=== PATIENT | male | born 1950 | race Caucasian/White ===

== ENCOUNTER 2021-11-18 20:37 | Inpatient (IN) | payer OTHER ==
[2021-11-18 21:22] LABS: #Eosinphils 0.1 10x3/uL (0.0-0.5); #Monocytes 1.1 10x3/uL (0.0-1.1); #Neutrophils 5.7 10x3/uL (1.5-8.4); %Basophils 0.4 % (0.0-2.0); %Lymphocytes 11.1 % (18.0-47.0); %Monocytes 13.8 % (0.0-10.0); %Neutrophils 73.2 % (40.0-75.0); Hemoglobin 10.9 g/dL (13.5-17.5); Mean Corpuscular HGB CONC 31.8 g/dL (32.0-36.0); Mean Corpuscular Hemoglobin 28.3 pg (27.0-33.0); Mean Corpuscular Volume 89.1 fl (81.2-95.1); Mean Platelet Volume 11.4 fl (7.4-10.4); Platelet Count 170 10x3/uL (150-450); RBC Distribution Width 13.8 % (11.5-14.5); Red Blood Cell (RBC) Count 3.85 10x6/uL (4.32-5.72); White Blood Cell (WBC) Count 7.8 10x3/uL (3.5-10.5)
[2021-11-18 21:45] LABS: SARS-CoV-2 NAA Rapid Test DETECTED (NotDetected)
[2021-11-18 21:57] LABS: ALT (SGPT) 21 U/L (8-55); AST (SGOT) 20 U/L (5-34); Albumin 3.9 g/dL (3.4-4.8); Alkaline Phosphatase 90 U/L (40-110); Anion Gap 13 mmol/L (10-20); BUN (Urea Nitrogen) 39 mg/dL (8.4-25.7); Bilirubin, Total 0.4 mg/dL (0.2-1.2); Calc. Creatinine Clearance 0 mL/min (70-130); Calcium 8.5 mg/dL (7.8-10.44); Carbon Dioxide 23 mmol/L (23-31); Chloride 106 mmol/L (98-107); Globulin 2.3 g/dL (2.4-3.5); Glucose 85 mg/dL (83-110); Potassium 4.4 mmol/L (3.5-5.1); Protein, Total 6.2 g/dL (5.8-8.1); Sodium 138 mmol/L (136-145)
[2021-11-18] MEDS ORDERED: Furosemide 40 MG/4 ML VIAL ONE (22:10)
[2021-11-18 22:22] LABS: CKMB 4.2 ng/mL (0-6.6)
[2021-11-18] MEDS ORDERED: Heparin 5,000 UNITS/ML VIAL ONE (22:43)
[2021-11-18] MEDS ORDERED: Heparin 25,000 units/D5W 500 ML ONE (22:43)
[2021-11-18] MEDS ORDERED: Nitroglycerin 0.4 MG TAB (25 Tab Bottle) SL PRN (23:22)
[2021-11-18] MEDS ORDERED: Zinc Sulfate 220 MG CAP PO SCH (23:30)
[2021-11-18] MEDS ORDERED: Cholecalciferol 1,000 UNITS (25 MCG) TAB PO SCH (23:30)
[2021-11-18] MEDS ORDERED: Ascorbic Acid 500 mg Chewable Tablet PO SCH (23:30)
[2021-11-18] MEDS ORDERED: Dextrose 5% in Water 1,000 ML IV PRN (23:34)
[2021-11-18] MEDS ORDERED: Dextrose 50% Abboject 50 ML SYRINGE SLOW IVP PRN (23:34)
[2021-11-18] MEDS ORDERED: Heparin 25,000 units/D5W 500 ML IVPB SCH (23:45)
[2021-11-18] MEDS ORDERED: Heparin 10,000 UNITS/ 10 ML VIAL SLOW IVP SCH (23:45)
[2021-11-19 00:11] LABS: Magnesium 2.3 mg/dL (1.6-2.6)
[2021-11-19 00:14] LABS: Hemoglobin 10.2 g/dL (13.5-17.5); Platelet Count 153 10x3/uL (150-450)
[2021-11-19] MEDS ORDERED: Dexamethasone 10 MG/ML VIAL SLOW IVP SCH (00:15)
[2021-11-19] MEDS ORDERED: Aspirin 325 MG TAB PO SCH (00:15)
[2021-11-19 00:38] LABS: PTT 106.4 sec (22.0-33.0)
[2021-11-19] MEDS ORDERED: Ascorbic Acid 500 mg Chewable Tablet ONE (01:27)
[2021-11-19] MEDS ORDERED: Zinc Sulfate 220 MG CAP ONE (01:27)
[2021-11-19] MEDS ORDERED: Dexamethasone 10 MG/ML VIAL ONE (01:28)
[2021-11-19 03:27] LABS: #Eosinphils 0.1 10x3/uL (0.0-0.5); #Monocytes 0.6 10x3/uL (0.0-1.1); #Neutrophils 4.8 10x3/uL (1.5-8.4); %Basophils 0.5 % (0.0-2.0); %Eosinophils 1.6 % (0.0-6.0); %Monocytes 8.7 % (0.0-10.0); %Neutrophils 75.7 % (40.0-75.0); Hemoglobin 10.8 g/dL (13.5-17.5); Mean Corpuscular HGB CONC 31.8 g/dL (32.0-36.0); Mean Corpuscular Hemoglobin 28.3 pg (27.0-33.0); Mean Corpuscular Volume 89.2 fl (81.2-95.1); Mean Platelet Volume 11.6 fl (7.4-10.4); Platelet Count 156 10x3/uL (150-450); RBC Distribution Width 13.9 % (11.5-14.5); Red Blood Cell (RBC) Count 3.81 10x6/uL (4.32-5.72); White Blood Cell (WBC) Count 6.3 10x3/uL (3.5-10.5)
[2021-11-19 04:02] LABS: Anion Gap 15 mmol/L (10-20); BUN (Urea Nitrogen) 40 mg/dL (8.4-25.7); Calc. Creatinine Clearance 0 mL/min (70-130); Calcium 8.4 mg/dL (7.8-10.44); Carbon Dioxide 22 mmol/L (23-31); Cardiac Risk 3.5 (Less than 4.5); Chloride 106 mmol/L (98-107); Cholesterol 126 mg/dl (< 200 Desired); Glucose 114 mg/dL (83-110); HDL Cholesterol 36 mg/dL (>60 Neg Risk); LDL Cholesterol, Calculated 80 mg/dL; Potassium 4.4 mmol/L (3.5-5.1); Sodium 139 mmol/L (136-145); Triglycerides 49 mg/dL (Less than 150)
[2021-11-19 04:19] LABS: Critical Call Chem Troponin I @PATIENT RESULT IS DECREASING; Troponin I 0.927 ng/mL (< 0.028)
[2021-11-19] MEDS ORDERED: Nitroglycerin 2% Ointment 1 INCH/1 GM Packet TOP SCH (06:00)
[2021-11-19] MEDS ORDERED: Furosemide 40 MG/4 ML VIAL SLOW IVP SCH (06:00)
[2021-11-19] MEDS ORDERED: Nitroglycerin 2% Ointment 1 INCH/1 GM Packet ONE (06:13)
[2021-11-19] MEDS ORDERED: Furosemide 100 MG/10 ML VIAL ONE (06:14)
[2021-11-19] MEDS: Levothyroxine Sodium 25 MCG TAB PO SCH (06:23)
[2021-11-19] MEDS ORDERED: Heparin 5,000 UNITS/ML VIAL ONE (07:54)
[2021-11-19 08:21] LABS: Magnesium 2.3 mg/dL (1.6-2.6); Phosphorus 4.5 mg/dL (2.3-4.7)
[2021-11-19] MEDS ORDERED: Amlodipine 5 MG TAB PO SCH (09:00)
[2021-11-19] MEDS ORDERED: Lisinopril 2.5 MG TAB PO SCH (09:00)
[2021-11-19] MEDS ORDERED: Aspirin Chewable 81 MG TAB ONE (10:13)
[2021-11-19] MEDS ORDERED: Amlodipine 5 MG TAB ONE (10:14)
[2021-11-19] MEDS ORDERED: Lisinopril 10 MG TAB ONE (10:14)
[2021-11-19] MEDS: Lisinopril 10 MG TAB PO SCH (10:20)
[2021-11-19] MEDS: Aspirin Chewable 81 MG TAB PO SCH (10:20)
[2021-11-19 10:48] LABS: Free T4 (Free Thyroxine) 1.05 ng/dL (0.70-1.48)
[2021-11-19 12:03] LABS: Hemoglobin A1c 6.2 % (4.0-6.0)
[2021-11-19] MEDS ORDERED: Clopidogrel Bisulfate 75 MG TAB PO SCH (12:15)
[2021-11-19] MEDS ORDERED: Clopidogrel Bisulfate 75 MG TAB ONE (13:52)
[2021-11-19 14:20] LABS: Bilirubin Neg (Negative); Blood, Urine Negative (Negative); Clarity Clear (Clear); Glucose, Urine (Dipstick) Normal (Negative); Ketone, Urine Negative (Negative); Leukocyte Negative (Negative); Nitrite Negative (Negative); Protein, Urine (Dipstick) Negative (Neg-Trace); Urobilinogen Normal mg/dL (Less than 2)
[2021-11-19 15:57] LABS: Bacteria/HPF Rare-Few HPF (None Seen); RBC/HPF None Seen HPF (0-3); Squamous Epithelial None Seen HPF (0-3); WBC/HPF 0-3 HPF (0-3)
[2021-11-19] MEDS ORDERED: HumaLOG 300 UNITS/3 ML VIAL ONE (16:27)
[2021-11-19 16:51] LABS: CKMB 5.1 ng/mL (0-6.6)
[2021-11-19] MEDS ORDERED: Labetalol HCl 100 MG/20 ML VIAL SLOW IVP PRN (17:08)
[2021-11-19] MEDS ORDERED: Ondansetron ODT 4 MG TAB PO PRN (17:08)
[2021-11-19] MEDS ORDERED: Artificial Tear Sol 15 ML BOT EA EYE PRN (17:08)
[2021-11-19] MEDS ORDERED: Sodium Chloride 0.65% Nasal 44 ML BOT EA NARE PRN (17:08)
[2021-11-19] MEDS ORDERED: Senokot S 8.6-50 MG TAB PO PRN (17:08)
[2021-11-19] MEDS ORDERED: Ondansetron PF 4 MG/2 ML Vial IVP PRN (17:08)
[2021-11-19] MEDS ORDERED: hydrALAZINE 20 MG/ML VIAL SLOW IVP PRN (17:08)
[2021-11-19] MEDS ORDERED: REMDESIVIR REQUEST IVPB PRN (17:16)
[2021-11-19] MEDS: HumaLOG 300 UNITS/3 ML VIAL SC PRN (17:38)
[2021-11-19] MEDS: Carvedilol 6.25 MG TAB PO SCH (18:58)
[2021-11-19 19:06] VITALS: BMI 25.7
[2021-11-19] MEDS ORDERED: Atorvastatin Calcium 20 MG TAB PO SCH (21:00)
[2021-11-19] MEDS ORDERED: NPH, Human Insulin Isophane 300 UNIT/3 ML VIAL SC SCH (21:00)
[2021-11-19] MEDS ORDERED: Dexamethasone 20 MG/5 ML VIAL SLOW IVP SCH (21:00)
[2021-11-19] MEDS ORDERED: Famotidine 20 MG TAB PO SCH (21:00)
[2021-11-19] MEDS ORDERED: NPH, Human Insulin Isophane 300 UNIT/3 ML VIAL ONE (21:48)
[2021-11-19] MEDS: Atorvastatin Calcium 40 MG TAB PO SCH (21:59)
[2021-11-19] MEDS: Cholecalciferol 1,000 UNITS (25 MCG) TAB PO SCH (22:00)
[2021-11-19] MEDS: Ascorbic Acid 500 mg Chewable Tablet PO SCH (22:00)
[2021-11-19] MEDS: DULoxetine 30 MG CAP PO SCH (22:00)
[2021-11-19] MEDS: Zinc Sulfate 220 MG CAP PO SCH (22:01)
[2021-11-19] MEDS: NPH, Human Insulin Isophane 300 UNIT/3 ML VIAL SC SCH (22:02)
[2021-11-20 04:52] LABS: #Monocytes 0.3 10x3/uL (0.0-1.1); %Basophils 0.1 % (0.0-2.0); %Lymphocytes 5.5 % (18.0-47.0); %Monocytes 3.6 % (0.0-10.0); %Neutrophils 90.4 % (40.0-75.0); Mean Corpuscular HGB CONC 32.1 g/dL (32.0-36.0); Mean Corpuscular Hemoglobin 28.4 pg (27.0-33.0); Mean Corpuscular Volume 88.6 fl (81.2-95.1); Mean Platelet Volume 11.5 fl (7.4-10.4); Platelet Count 190 10x3/uL (150-450); RBC Distribution Width 13.9 % (11.5-14.5); Red Blood Cell (RBC) Count 3.87 10x6/uL (4.32-5.72); White Blood Cell (WBC) Count 7.8 10x3/uL (3.5-10.5)
[2021-11-20 05:06] LABS: ALT (SGPT) 17 U/L (8-55); AST (SGOT) 16 U/L (5-34); Albumin 3.5 g/dL (3.4-4.8); Alkaline Phosphatase 86 U/L (40-110); Anion Gap 15 mmol/L (10-20); BUN (Urea Nitrogen) 49 mg/dL (8.4-25.7); Bilirubin, Total 0.4 mg/dL (0.2-1.2); Calc. Creatinine Clearance 34 mL/min (70-130); Calcium 8.4 mg/dL (7.8-10.44); Carbon Dioxide 21 mmol/L (23-31); Chloride 107 mmol/L (98-107); Globulin 2.5 g/dL (2.4-3.5); Glucose 228 mg/dL (83-110); Iron 27 ug/dL (65-175); Iron Binding Capacity, Total 176 mcg/dL (261-462); Potassium 4.6 mmol/L (3.5-5.1); Sodium 138 mmol/L (136-145)
[2021-11-20] MEDS: Levothyroxine Sodium 25 MCG TAB PO SCH (05:06)
[2021-11-20] MEDS: HumaLOG 300 UNITS/3 ML VIAL SC PRN ×3 (05:08→17:30)
[2021-11-20] MEDS: Aspirin Chewable 81 MG TAB PO SCH (08:52)
[2021-11-20] MEDS: Lisinopril 10 MG TAB PO SCH (08:52)
[2021-11-20] MEDS: Carvedilol 6.25 MG TAB PO SCH ×2 (08:52→17:00)
[2021-11-20] MEDS: Clopidogrel Bisulfate 75 MG TAB PO SCH (08:52)
[2021-11-20] MEDS: NPH, Human Insulin Isophane 300 UNIT/3 ML VIAL SC SCH ×2 (08:57→20:17)
[2021-11-20] MEDS ORDERED: Furosemide 40 MG/4 ML VIAL SLOW IVP SCH (09:00)
[2021-11-20] MEDS: guaiFENesin/Codeine Phosphate 100 mg/10 mg 5 ml UD Cup PO PRN ×2 (13:25→20:23)
[2021-11-20] MEDS: Benzonatate 100 MG CAP PO PRN ×2 (13:25→20:19)
[2021-11-20] MEDS ORDERED: REMDESIVIR 100 MG, Admixture Fee 1 EACH in Sodium Chloride 0.9% 250 ML 230 ML IV SCH (16:00)
[2021-11-20] MEDS ORDERED: REMDESIVIR 200 MG, Admixture Fee 1 EACH in Sodium Chloride 0.9% 250 ML 210 ML IV SCH (16:00)
[2021-11-20] MEDS: Atorvastatin Calcium 40 MG TAB PO SCH (20:19)
[2021-11-20] MEDS: Zinc Sulfate 220 MG CAP PO SCH (20:19)
[2021-11-20] MEDS: Ascorbic Acid 500 mg Chewable Tablet PO SCH (20:19)
[2021-11-20] MEDS: Dexamethasone 20 MG/5 ML VIAL SLOW IVP SCH (20:22)
[2021-11-20] MEDS: Famotidine 20 MG TAB PO SCH (20:22)
[2021-11-20] MEDS: DULoxetine 30 MG CAP PO SCH (20:23)
[2021-11-20] MEDS: Cholecalciferol 1,000 UNITS (25 MCG) TAB PO SCH (20:23)
[2021-11-20] MEDS ORDERED: Enoxaparin Sodium 30 MG/0.3 ML SYRINGE SC SCH (21:00)
[2021-11-21 00:20] LABS: Hemoglobin 11.2 g/dL (13.5-17.5); Platelet Count 195 10x3/uL (150-450)
[2021-11-21 06:08] LABS: ALT (SGPT) 15 U/L (8-55); AST (SGOT) 17 U/L (5-34); Albumin 3.2 g/dL (3.4-4.8); Alkaline Phosphatase 77 U/L (40-110); Anion Gap 14 mmol/L (10-20); BUN (Urea Nitrogen) 46 mg/dL (8.4-25.7); Bilirubin, Total 0.2 mg/dL (0.2-1.2); Calc. Creatinine Clearance 40 mL/min (70-130); Calcium 8.3 mg/dL (7.8-10.44); Carbon Dioxide 22 mmol/L (23-31); Chloride 109 mmol/L (98-107); Globulin 2.3 g/dL (2.4-3.5); Glucose 178 mg/dL (83-110); Potassium 4.8 mmol/L (3.5-5.1); Protein, Total 5.5 g/dL (5.8-8.1); Sodium 140 mmol/L (136-145)
[2021-11-21 06:10] LABS: #Monocytes 0.2 10x3/uL (0.0-1.1); #Neutrophils 6.1 10x3/uL (1.5-8.4); %Basophils 0.1 % (0.0-2.0); %Lymphocytes 7.7 % (18.0-47.0); %Monocytes 2.8 % (0.0-10.0); Hemoglobin 10.6 g/dL (13.5-17.5); Mean Corpuscular HGB CONC 30.9 g/dL (32.0-36.0); Mean Corpuscular Volume 90.5 fl (81.2-95.1); Mean Platelet Volume 11.5 fl (7.4-10.4); Platelet Count 191 10x3/uL (150-450); Red Blood Cell (RBC) Count 3.79 10x6/uL (4.32-5.72); White Blood Cell (WBC) Count 6.9 10x3/uL (3.5-10.5)
[2021-11-21] MEDS: Levothyroxine Sodium 25 MCG TAB PO SCH (07:05)
[2021-11-21] MEDS: Carvedilol 6.25 MG TAB PO SCH ×2 (08:22→17:55)
[2021-11-21] MEDS: Clopidogrel Bisulfate 75 MG TAB PO SCH (08:22)
[2021-11-21] MEDS: Ferrous Sulfate 325 MG TAB PO SCH (08:22)
[2021-11-21] MEDS: Aspirin Chewable 81 MG TAB PO SCH (08:23)
[2021-11-21] MEDS: Dexamethasone 20 MG/5 ML VIAL SLOW IVP SCH ×2 (08:23→21:52)
[2021-11-21] MEDS: NPH, Human Insulin Isophane 300 UNIT/3 ML VIAL SC SCH (08:24)
[2021-11-21] MEDS: Furosemide 20 MG TAB PO SCH (09:53)
[2021-11-21] MEDS: HumaLOG 300 UNITS/3 ML VIAL SC PRN ×2 (12:24→17:22)
[2021-11-21] MEDS: REMDESIVIR 100 MG, Admixture Fee 1 EACH in Sodium Chloride 0.9% 250 ML 230 ML IV SCH (15:43)
[2021-11-21] MEDS ORDERED: NPH, Human Insulin Isophane 300 UNIT/3 ML VIAL SC SCH (21:00)
[2021-11-21] MEDS: Enoxaparin Sodium 40 MG/0.4 ML SYRINGE SC SCH (21:51)
[2021-11-21] MEDS: Ascorbic Acid 500 mg Chewable Tablet PO SCH (21:52)
[2021-11-21] MEDS: Famotidine 20 MG TAB PO SCH (21:52)
[2021-11-21] MEDS: Atorvastatin Calcium 40 MG TAB PO SCH (21:52)
[2021-11-21] MEDS: DULoxetine 30 MG CAP PO SCH (21:52)
[2021-11-21] MEDS: Cholecalciferol 1,000 UNITS (25 MCG) TAB PO SCH (21:52)
[2021-11-21] MEDS: Zinc Sulfate 220 MG CAP PO SCH (21:53)
[2021-11-22 06:29] LABS: #Monocytes 0.2 10x3/uL (0.0-1.1); #Neutrophils 7.7 10x3/uL (1.5-8.4); %Basophils 0.1 % (0.0-2.0); %Lymphocytes 5.3 % (18.0-47.0); %Monocytes 2.2 % (0.0-10.0); %Neutrophils 91.9 % (40.0-75.0); Hemoglobin 10.5 g/dL (13.5-17.5); Mean Corpuscular HGB CONC 31.2 g/dL (32.0-36.0); Mean Corpuscular Hemoglobin 28.3 pg (27.0-33.0); Mean Corpuscular Volume 90.8 fl (81.2-95.1); Mean Platelet Volume 11.7 fl (7.4-10.4); Platelet Count 201 10x3/uL (150-450); RBC Distribution Width 14.1 % (11.5-14.5); Red Blood Cell (RBC) Count 3.71 10x6/uL (4.32-5.72); White Blood Cell (WBC) Count 8.4 10x3/uL (3.5-10.5)
[2021-11-22 06:46] LABS: ALT (SGPT) 16 U/L (8-55); Alkaline Phosphatase 73 U/L (40-110); Anion Gap 13 mmol/L (10-20); BUN (Urea Nitrogen) 53 mg/dL (8.4-25.7); Bilirubin, Total 0.2 mg/dL (0.2-1.2); Calc. Creatinine Clearance 37 mL/min (70-130); Calcium 8.2 mg/dL (7.8-10.44); Carbon Dioxide 23 mmol/L (23-31); Chloride 107 mmol/L (98-107); Globulin 2.6 g/dL (2.4-3.5); Glucose 236 mg/dL (83-110); Potassium 5.2 mmol/L (3.5-5.1); Protein, Total 5.6 g/dL (5.8-8.1); Sodium 138 mmol/L (136-145)
[2021-11-22 06:51] LABS: AST (SGOT) 21 U/L (5-34)
[2021-11-22] MEDS: Levothyroxine Sodium 25 MCG TAB PO SCH (07:03)
[2021-11-22] MEDS ORDERED: Ventolin HFA Inhaler 60 PUFF INHALER INH SCH (08:00)
[2021-11-22] MEDS: Furosemide 20 MG TAB PO SCH (08:51)
[2021-11-22] MEDS: Clopidogrel Bisulfate 75 MG TAB PO SCH (08:51)
[2021-11-22] MEDS: Aspirin Chewable 81 MG TAB PO SCH (08:51)
[2021-11-22] MEDS: Dexamethasone 20 MG/5 ML VIAL SLOW IVP SCH (08:52)
[2021-11-22] MEDS: Ferrous Sulfate 325 MG TAB PO SCH (08:52)
[2021-11-22] MEDS: Carvedilol 6.25 MG TAB PO SCH ×2 (08:52→16:25)
[2021-11-22] MEDS: NPH, Human Insulin Isophane 300 UNIT/3 ML VIAL SC SCH ×2 (08:53→20:01)
[2021-11-22] MEDS ORDERED: NPH, Human Insulin Isophane 300 UNIT/3 ML VIAL SC SCH (09:00)
[2021-11-22] MEDS ORDERED: Ventolin HFA Inhaler 60 PUFF INHALER INH PRN (10:30)
[2021-11-22] MEDS: HumaLOG 300 UNITS/3 ML VIAL SC PRN ×3 (12:51→16:59)
[2021-11-22] MEDS: REMDESIVIR 100 MG, Admixture Fee 1 EACH in Sodium Chloride 0.9% 250 ML 230 ML IV SCH (16:24)
[2021-11-22] MEDS: Atorvastatin Calcium 40 MG TAB PO SCH (19:59)
[2021-11-22] MEDS: Zinc Sulfate 220 MG CAP PO SCH (20:00)
[2021-11-22] MEDS: Ascorbic Acid 500 mg Chewable Tablet PO SCH (20:00)
[2021-11-22] MEDS: Cholecalciferol 1,000 UNITS (25 MCG) TAB PO SCH (20:00)
[2021-11-22] MEDS: Famotidine 20 MG TAB PO SCH (20:00)
[2021-11-22] MEDS: Enoxaparin Sodium 40 MG/0.4 ML SYRINGE SC SCH (20:00)
[2021-11-22] MEDS: DULoxetine 30 MG CAP PO SCH (20:00)
[2021-11-23 00:37] LABS: Hemoglobin 10.8 g/dL (13.5-17.5); Platelet Count 198 10x3/uL (150-450)
[2021-11-23 05:08] LABS: ALT (SGPT) 13 U/L (8-55); AST (SGOT) 18 U/L (5-34); Albumin 3.1 g/dL (3.4-4.8); Alkaline Phosphatase 72 U/L (40-110); Anion Gap 12 mmol/L (10-20); BUN (Urea Nitrogen) 56 mg/dL (8.4-25.7); Bilirubin, Total 0.2 mg/dL (0.2-1.2); Calc. Creatinine Clearance 37 mL/min (70-130); Calcium 8.3 mg/dL (7.8-10.44); Carbon Dioxide 24 mmol/L (23-31); Chloride 108 mmol/L (98-107); Globulin 2.2 g/dL (2.4-3.5); Potassium 3.8 mmol/L (3.5-5.1); Protein, Total 5.3 g/dL (5.8-8.1); Sodium 140 mmol/L (136-145)
[2021-11-23 05:12] LABS: #Eosinphils 0.3 10x3/uL (0.0-0.5); #Monocytes 1.3 10x3/uL (0.0-1.1); #Neutrophils 8.1 10x3/uL (1.5-8.4); %Basophils 0.2 % (0.0-2.0); %Eosinophils 2.1 % (0.0-6.0); %Lymphocytes 19.8 % (18.0-47.0); %Monocytes 10.6 % (0.0-10.0); %Neutrophils 66.9 % (40.0-75.0); Hemoglobin 10.8 g/dL (13.5-17.5); Mean Corpuscular HGB CONC 31.5 g/dL (32.0-36.0); Mean Corpuscular Hemoglobin 28.3 pg (27.0-33.0); Mean Corpuscular Volume 89.8 fl (81.2-95.1); Mean Platelet Volume 11.9 fl (7.4-10.4); Platelet Count 216 10x3/uL (150-450); RBC Distribution Width 14.3 % (11.5-14.5); Red Blood Cell (RBC) Count 3.82 10x6/uL (4.32-5.72); White Blood Cell (WBC) Count 12.1 10x3/uL (3.5-10.5)
[2021-11-23 05:17] LABS: Glucose 45 mg/dL (83-110)
[2021-11-23] MEDS: Levothyroxine Sodium 25 MCG TAB PO SCH (07:13)
[2021-11-23] MEDS: Furosemide 20 MG TAB PO SCH ×2 (09:03→11:31)
[2021-11-23] MEDS: Ferrous Sulfate 325 MG TAB PO SCH (09:03)
[2021-11-23] MEDS: Dexamethasone 20 MG/5 ML VIAL SLOW IVP SCH (09:03)
[2021-11-23] MEDS: Carvedilol 6.25 MG TAB PO SCH ×4 (09:04→17:47)
[2021-11-23] MEDS: Aspirin Chewable 81 MG TAB PO SCH (09:04)
[2021-11-23] MEDS: NPH, Human Insulin Isophane 300 UNIT/3 ML VIAL SC SCH ×2 (09:08→21:00)
[2021-11-23] MEDS: Clopidogrel Bisulfate 75 MG TAB PO SCH (09:12)
[2021-11-23] MEDS: REMDESIVIR 100 MG, Admixture Fee 1 EACH in Sodium Chloride 0.9% 250 ML 230 ML IV SCH (17:45)
[2021-11-23] MEDS: HumaLOG 300 UNITS/3 ML VIAL SC PRN (17:45)
[2021-11-23] MEDS: Ascorbic Acid 500 mg Chewable Tablet PO SCH (20:41)
[2021-11-23] MEDS: Zinc Sulfate 220 MG CAP PO SCH (20:41)
[2021-11-23] MEDS: DULoxetine 30 MG CAP PO SCH (20:41)
[2021-11-23] MEDS: Famotidine 20 MG TAB PO SCH (20:41)
[2021-11-23] MEDS: Enoxaparin Sodium 40 MG/0.4 ML SYRINGE SC SCH (20:41)
[2021-11-23] MEDS: Atorvastatin Calcium 40 MG TAB PO SCH (20:42)
[2021-11-23] MEDS: Cholecalciferol 1,000 UNITS (25 MCG) TAB PO SCH (20:42)
[2021-11-24 07:00] LABS: Anion Gap 12 mmol/L (10-20); BUN (Urea Nitrogen) 54 mg/dL (8.4-25.7); Calc. Creatinine Clearance 40 mL/min (70-130); Calcium 8.2 mg/dL (7.8-10.44); Carbon Dioxide 23 mmol/L (23-31); Chloride 109 mmol/L (98-107); Glucose 235 mg/dL (83-110); Potassium 4.3 mmol/L (3.5-5.1); Sodium 140 mmol/L (136-145)
[2021-11-24] MEDS: Levothyroxine Sodium 25 MCG TAB PO SCH (07:48)
[2021-11-24] MEDS: Polyethylene Glycol 3350 17 GM Packet PO SCH (08:18)
[2021-11-24] MEDS: Clopidogrel Bisulfate 75 MG TAB PO SCH (08:19)
[2021-11-24] MEDS: Carvedilol 6.25 MG TAB PO SCH ×2 (08:19→17:01)
[2021-11-24] MEDS: Aspirin Chewable 81 MG TAB PO SCH (08:19)
[2021-11-24] MEDS: Dexamethasone 20 MG/5 ML VIAL SLOW IVP SCH (08:19)
[2021-11-24] MEDS: Ferrous Sulfate 325 MG TAB PO SCH (08:19)
[2021-11-24] MEDS: Furosemide 20 MG TAB PO SCH (08:19)
[2021-11-24] MEDS: NPH, Human Insulin Isophane 300 UNIT/3 ML VIAL SC SCH ×2 (08:20→21:14)
[2021-11-24] MEDS: HumaLOG 300 UNITS/3 ML VIAL SC PRN ×3 (13:12→21:14)
[2021-11-24] MEDS: REMDESIVIR 100 MG, Admixture Fee 1 EACH in Sodium Chloride 0.9% 250 ML 230 ML IV SCH (15:41)
[2021-11-24] MEDS: Enoxaparin Sodium 40 MG/0.4 ML SYRINGE SC SCH (21:13)
[2021-11-24] MEDS: Atorvastatin Calcium 40 MG TAB PO SCH (21:13)
[2021-11-24] MEDS: Ascorbic Acid 500 mg Chewable Tablet PO SCH (21:14)
[2021-11-24] MEDS: Zinc Sulfate 220 MG CAP PO SCH (21:14)
[2021-11-24] MEDS: Famotidine 20 MG TAB PO SCH (21:14)
[2021-11-24] MEDS: Cholecalciferol 1,000 UNITS (25 MCG) TAB PO SCH (21:14)
[2021-11-24] MEDS: DULoxetine 30 MG CAP PO SCH (21:14)
[2021-11-24 23:21] LABS: Hemoglobin 11.3 g/dL (13.5-17.5); Platelet Count 186 10x3/uL (150-450)
[2021-11-25 05:50] LABS: Anion Gap 14 mmol/L (10-20); BUN (Urea Nitrogen) 59 mg/dL (8.4-25.7); Calc. Creatinine Clearance 36 mL/min (70-130); Calcium 8.6 mg/dL (7.8-10.44); Carbon Dioxide 24 mmol/L (23-31); Chloride 109 mmol/L (98-107); Glucose 131 mg/dL (83-110); Potassium 5.8 mmol/L (3.5-5.1); Sodium 141 mmol/L (136-145)
[2021-11-25] MEDS: Levothyroxine Sodium 25 MCG TAB PO SCH (06:08)
[2021-11-25] MEDS: Aspirin Chewable 81 MG TAB PO SCH (07:39)
[2021-11-25] MEDS: Carvedilol 6.25 MG TAB PO SCH ×2 (07:39→17:54)
[2021-11-25] MEDS: Clopidogrel Bisulfate 75 MG TAB PO SCH (07:39)
[2021-11-25] MEDS: Dexamethasone 20 MG/5 ML VIAL SLOW IVP SCH (07:39)
[2021-11-25] MEDS: Polyethylene Glycol 3350 17 GM Packet PO SCH (07:39)
[2021-11-25] MEDS: Furosemide 20 MG TAB PO SCH (07:39)
[2021-11-25] MEDS: Ferrous Sulfate 325 MG TAB PO SCH (07:39)
[2021-11-25] MEDS: NPH, Human Insulin Isophane 300 UNIT/3 ML VIAL SC SCH ×2 (07:47→19:53)
[2021-11-25 11:12] LABS: Anion Gap 12 mmol/L (10-20); BUN (Urea Nitrogen) 59 mg/dL (8.4-25.7); Calc. Creatinine Clearance 38 mL/min (70-130); Calcium 8.2 mg/dL (7.8-10.44); Carbon Dioxide 24 mmol/L (23-31); Chloride 107 mmol/L (98-107); Glucose 222 mg/dL (83-110); Potassium 5.1 mmol/L (3.5-5.1); Sodium 138 mmol/L (136-145)
[2021-11-25] MEDS: HumaLOG 300 UNITS/3 ML VIAL SC PRN ×3 (12:03→20:22)
[2021-11-25 14:34] LABS: Anion Gap 13 mmol/L (10-20); BUN (Urea Nitrogen) 59 mg/dL (8.4-25.7); Calc. Creatinine Clearance 38 mL/min (70-130); Calcium 8.3 mg/dL (7.8-10.44); Carbon Dioxide 24 mmol/L (23-31); Chloride 107 mmol/L (98-107); Glucose 250 mg/dL (83-110); Potassium 5.8 mmol/L (3.5-5.1); Sodium 138 mmol/L (136-145)
[2021-11-25 18:42] LABS: Anion Gap 14 mmol/L (10-20); BUN (Urea Nitrogen) 58 mg/dL (8.4-25.7); Calc. Creatinine Clearance 39 mL/min (70-130); Calcium 8.4 mg/dL (7.8-10.44); Carbon Dioxide 25 mmol/L (23-31); Chloride 105 mmol/L (98-107); Glucose 277 mg/dL (83-110); Sodium 139 mmol/L (136-145)
[2021-11-25] MEDS: Atorvastatin Calcium 40 MG TAB PO SCH (19:52)
[2021-11-25] MEDS: Ascorbic Acid 500 mg Chewable Tablet PO SCH (19:52)
[2021-11-25] MEDS: DULoxetine 30 MG CAP PO SCH (19:52)
[2021-11-25] MEDS: Cholecalciferol 1,000 UNITS (25 MCG) TAB PO SCH (19:53)
[2021-11-25] MEDS: Famotidine 20 MG TAB PO SCH (19:53)
[2021-11-25] MEDS: Zinc Sulfate 220 MG CAP PO SCH (19:53)
[2021-11-25] MEDS: Enoxaparin Sodium 40 MG/0.4 ML SYRINGE SC SCH (19:53)
[2021-11-26 06:01] LABS: Anion Gap 13 mmol/L (10-20); BUN (Urea Nitrogen) 57 mg/dL (8.4-25.7); Calc. Creatinine Clearance 44 mL/min (70-130); Calcium 8.1 mg/dL (7.8-10.44); Carbon Dioxide 24 mmol/L (23-31); Chloride 110 mmol/L (98-107); Glucose 66 mg/dL (83-110); Potassium 4.5 mmol/L (3.5-5.1); Sodium 142 mmol/L (136-145)
[2021-11-26] MEDS: Levothyroxine Sodium 25 MCG TAB PO SCH (06:16)
[2021-11-26] MEDS: Furosemide 40 MG TAB PO SCH (06:16)
[2021-11-26] MEDS: NPH, Human Insulin Isophane 300 UNIT/3 ML VIAL SC SCH ×2 (08:00→23:04)
[2021-11-26] MEDS: Clopidogrel Bisulfate 75 MG TAB PO SCH (08:52)
[2021-11-26] MEDS: Polyethylene Glycol 3350 17 GM Packet PO SCH (08:52)
[2021-11-26] MEDS: Aspirin Chewable 81 MG TAB PO SCH (08:52)
[2021-11-26] MEDS: Ferrous Sulfate 325 MG TAB PO SCH (08:52)
[2021-11-26] MEDS: Carvedilol 6.25 MG TAB PO SCH ×2 (08:53→16:38)
[2021-11-26] MEDS: Dexamethasone 20 MG/5 ML VIAL SLOW IVP SCH (08:53)
[2021-11-26] MEDS: HumaLOG 300 UNITS/3 ML VIAL SC PRN ×2 (17:37→23:06)
[2021-11-26] MEDS: Ascorbic Acid 500 mg Chewable Tablet PO SCH (20:07)
[2021-11-26] MEDS: Atorvastatin Calcium 40 MG TAB PO SCH (20:07)
[2021-11-26] MEDS: Enoxaparin Sodium 40 MG/0.4 ML SYRINGE SC SCH (20:07)
[2021-11-26] MEDS: Zinc Sulfate 220 MG CAP PO SCH (20:08)
[2021-11-26] MEDS: Cholecalciferol 1,000 UNITS (25 MCG) TAB PO SCH (20:08)
[2021-11-26] MEDS: DULoxetine 30 MG CAP PO SCH (20:08)
[2021-11-26] MEDS: Famotidine 20 MG TAB PO SCH (20:08)
[2021-11-27 00:23] LABS: Hemoglobin 10.9 g/dL (13.5-17.5); Platelet Count 168 10x3/uL (150-450)
[2021-11-27] MEDS: Levothyroxine Sodium 25 MCG TAB PO SCH (06:19)
[2021-11-27] MEDS: Furosemide 40 MG TAB PO SCH (06:19)
[2021-11-27 06:56] LABS: Anion Gap 13 mmol/L (10-20); BUN (Urea Nitrogen) 57 mg/dL (8.4-25.7); Calc. Creatinine Clearance 45 mL/min (70-130); Calcium 7.9 mg/dL (7.8-10.44); Carbon Dioxide 23 mmol/L (23-31); Chloride 107 mmol/L (98-107); Glucose 87 mg/dL (83-110); Potassium 4.3 mmol/L (3.5-5.1); Sodium 139 mmol/L (136-145)
[2021-11-27 07:13] LABS: Hemoglobin 10.9 g/dL (13.5-17.5); Mean Corpuscular HGB CONC 31.8 g/dL (32.0-36.0); Mean Corpuscular Hemoglobin 27.9 pg (27.0-33.0); Mean Corpuscular Volume 87.9 fl (81.2-95.1); Mean Platelet Volume 12.1 fl (7.4-10.4); Platelet Count 169 10x3/uL (150-450); RBC Distribution Width 14.6 % (11.5-14.5); White Blood Cell (WBC) Count 6.2 10x3/uL (3.5-10.5)
[2021-11-27 07:45] LABS: MDiff Complete? YES
[2021-11-27 07:46] LABS: Platelet Morphology Comment Appears Adequate; RBC Morphology Normal
[2021-11-27 07:48] LABS: Eosinophils 1 % (0-10); Lymphocytes 23 % (21-51); Monocytes 16 % (0-10); Neutrophil 59 % (42-75)
[2021-11-27 08:14] VITALS: TEMP 98.2
[2021-11-27] MEDS: Ferrous Sulfate 325 MG TAB PO SCH (09:25)
[2021-11-27] MEDS: Polyethylene Glycol 3350 17 GM Packet PO SCH ×2 (09:25)
[2021-11-27] MEDS: Carvedilol 6.25 MG TAB PO SCH (09:25)
[2021-11-27] MEDS: Dexamethasone 20 MG/5 ML VIAL SLOW IVP SCH (09:25)
[2021-11-27] MEDS: NPH, Human Insulin Isophane 300 UNIT/3 ML VIAL SC SCH (09:25)
[2021-11-27] MEDS: Aspirin Chewable 81 MG TAB PO SCH (09:26)
[2021-11-27] MEDS: Clopidogrel Bisulfate 75 MG TAB PO SCH (09:26)
[2021-11-27 11:53] VITALS: BP 130/71
== END 2021-11-27 13:28 | DRG 177 ==
LOC: CSHERS 20:37 → EEVIPCON 23:47 → CSHERHOLD 23:47 → CSHTELE 11-19 18:13
PROVIDERS: ADMIT Family Medicine; ATTEND Hospitalist
PROC: 3E0333Z Introduction of Anti-inflammatory into Peripheral Vein, Percutaneous Approach (ICD-10-PCS; 2021-11-18)
PROC: 8E0ZXY6 Isolation (ICD-10-PCS; 2021-11-18)
PROC: XW033E5 Introduction of Remdesivir Anti-infective into Peripheral Vein, Percutaneous Approach, New Technology Group 5 (ICD-10-PCS; principal; 2021-11-20)
DX: U07.1 COVID-19 (principal); J96.01 Acute respiratory failure with hypoxia; I21.4 Non-ST elevation (NSTEMI) myocardial infarction; J12.82 Pneumonia due to coronavirus disease 2019; I50.31 Acute diastolic (congestive) heart failure; I13.0 Hypertensive heart and chronic kidney disease with heart failure and stage 1 through stage 4 chronic kidney disease, or unspecified chronic kidney disease; N17.9 Acute kidney failure, unspecified; E11.22 Type 2 diabetes mellitus with diabetic chronic kidney disease; E78.5 Hyperlipidemia, unspecified; E03.9 Hypothyroidism, unspecified; D50.9 Iron deficiency anemia, unspecified; E87.5 Hyperkalemia; N18.30 Chronic kidney disease, stage 3 unspecified; E88.09 Other disorders of plasma-protein metabolism, not elsewhere classified; N25.89 Other disorders resulting from impaired renal tubular function; Z79.899 Other long term (current) drug therapy; Z79.4 Long term (current) use of insulin; Z90.49 Acquired absence of other specified parts of digestive tract
CPT/HCPCS: 36415; 36416; 71045; 76770; 80048; 80053; 80061; 81001; 82553; 82607; 82746; 83036; 83540; 83550; 83735; 83880; 84100; 84439; 84443; 84481; 84484; 85014; 85018; 85025; 85049; 85730; 93005; 93010; 93306; 94664; 94760; 96374; 96375; J0248; J1100; J1644; J1650; J1815; J1940; J7050; U0002

== ENCOUNTER 2022-09-15 17:31 | Emergency (ER) | payer OTHER ==
[2022-09-15] MEDS ORDERED: Furosemide 40 MG/4 ML VIAL ONE ×2 (17:53→21:28)
[2022-09-15 18:27] LABS: Hemoglobin 10.4 g/dL (13.5-17.5); MDiff Complete? YES; Mean Corpuscular HGB CONC 33.4 g/dL (32.0-36.0); Mean Corpuscular Hemoglobin 29.7 pg (27.0-33.0); Mean Corpuscular Volume 88.9 fl (81.2-95.1); Platelet Count 164 10x3/uL (150-450); RBC Distribution Width 16.4 % (11.5-14.5); White Blood Cell (WBC) Count 12.3 10x3/uL (3.5-10.5)
[2022-09-15 18:35] LABS: SARS-CoV-2 NAA Rapid Test Not Detected (NotDetected)
[2022-09-15 18:37] LABS: D-Dimer Test 0.62 mg/L FEU (0.19-0.50); INR-International Normal Ratio 2.1; Prothrombin Time 22.3 sec (9.5-12.1)
[2022-09-15 18:40] LABS: Acetaminophen Less than 10.0 mcg/mL (10.0-30.0); Alcohol Less than 10 mg/dL (Less than 10); CK (CPK) 75 U/L (30-200); CRP (Inflammatory) 7.73 mg/dL (= or < 0.5); Magnesium 2.1 mg/dL (1.6-2.6); Salicylate Less than 8.0 mg/dL (15.0-30.0)
[2022-09-15 18:42] LABS: ALT (SGPT) 30 U/L (8-55); AST (SGOT) 28 U/L (5-34); Albumin 3.2 g/dL (3.4-4.8); Alkaline Phosphatase 114 U/L (40-110); Anion Gap 16 mmol/L (10-20); BUN (Urea Nitrogen) 57 mg/dL (8.4-25.7); Calc. Creatinine Clearance 0 mL/min (70-130); Carbon Dioxide 20 mmol/L (23-31); Chloride 95 mmol/L (98-107); Estimated GFR 28; Globulin 3.2 g/dL (2.4-3.5); Glucose 346 mg/dL (83-110); Potassium 5.3 mmol/L (3.5-5.1); Protein, Total 6.4 g/dL (5.8-8.1); Sodium 126 mmol/L (136-145)
[2022-09-15 18:45] LABS: Lymphocytes 5 % (21-51); Monocytes 5 % (0-10); Neutrophil 90 % (42-75)
[2022-09-15 18:46] LABS: Anisocytosis SLIGHT = 6-15 cells (100X) (0-5/hpf); Hypochromia SLIGHT = 6-15 cells (100X) (0-5/hpf); Platelet Morphology Comment Appears Adequate
[2022-09-15 19:01] LABS: CKMB 1.4 ng/mL (0-6.6)
[2022-09-15] MEDS ORDERED: Piperacillin/Tazobactam 4.5 GM VIAL ONE (19:03)
[2022-09-15] MEDS ORDERED: Vancomycin HCl 1 GM in Sodium Chloride 0.9% 250 ML 250 ML IVPB ONE (20:30)
[2022-09-15 21:30] LABS: Lactic Acid 1.6 mmol/L (0.5-2.2)
== END 2022-09-15 22:12 | disposition short-term general hospital (02) ==
LOC: CSHERS 17:31 → EEVIPCON 17:31 → CSHERS 22:12
DX: I13.0 Hypertensive heart and chronic kidney disease with heart failure and stage 1 through stage 4 chronic kidney disease, or unspecified chronic kidney disease (principal); E11.22 Type 2 diabetes mellitus with diabetic chronic kidney disease; N18.9 Chronic kidney disease, unspecified; Z79.4 Long term (current) use of insulin; Z79.899 Other long term (current) drug therapy; Z79.01 Long term (current) use of anticoagulants; B34.9 Viral infection, unspecified; Z20.822 Contact with and (suspected) exposure to COVID-19; E78.5 Hyperlipidemia, unspecified
CPT/HCPCS: 36415; 71045; 80053; 80307; 82550; 82553; 83605; 83735; 83880; 84443; 84484; 85025; 85379; 85610; 85730; 86140; 93005; 96365; 96366; 96375; 96376; J1940; J2543; J3370; J7050